=== PATIENT | female | born 1970 | race Caucasian/White ===

== ENCOUNTER 2022-05-23 15:47 | Emergency (ER) | payer MEDICAID ==
[~2022-05-23] VITALS: Ht 152.4 cm; Wt 55.0 kg
[2022-05-23] MEDS ORDERED: IBUPROFEN 600MG TABLET PO ONE (19:30)
[2022-05-23] MEDS ORDERED: IBUP-2029 MT (20:05)
[2022-05-23] MEDS ORDERED: CYCL10TA21 MT (20:05)
[2022-05-23 20:22] VITALS: BP 168/110
== END 2022-05-23 20:25 | disposition home or self-care (01) ==
LOC: ER 15:47
DX: S40.012A Contusion of left shoulder, initial encounter (principal); S30.0XXA Contusion of lower back and pelvis, initial encounter; M19.90 Unspecified osteoarthritis, unspecified site; Z88.2 Allergy status to sulfonamides; W01.0XXA Fall on same level from slipping, tripping and stumbling without subsequent striking against object, initial encounter; Y93.89 Activity, other specified; Y92.018 Other place in single-family (private) house as the place of occurrence of the external cause
CPT/HCPCS: 72100; 73030; 73080; 99284